=== PATIENT | female | born 1945 | race Caucasian/White ===

== ENCOUNTER 2017-01-04 13:24 | Emergency (ER) | payer MEDICARE ==
[2017-01-04 14:11] LABS: URINE BILIRUBIN NEGATIVE (NEGATIVE); URINE BLOOD NEGATIVE (NEGATIVE); URINE GLUCOSE (UA) NORMAL (NORMAL); URINE KETONE NEGATIVE (NEGATIVE); URINE LEUKOCYTE ESTERASE 2+ (NEGATIVE); URINE NITRATE NEGATIVE (NEGATIVE); URINE PROTEIN NEGATIVE (NEGATIVE)
[2017-01-04 14:16] LABS: BASO # 0.1 10_X3_uL (0.0-0.1); BASO % 1.7 % (0.1-1.2); EOS # 0.2 10_X3_uL (0.0-0.4); EOS % 3.5 % (0.7-5.8); GRAN # 2.1 10_X3_uL (1.6-6.1); GRAN % 34.9 % (34.0-71.1); HEMATOCRIT 35.3 % (34-45); HEMOGLOBIN 11.8 g/dL (11.2-15.7); LYMPH # 2.8 10_X3_uL (1.2-3.7); LYMPH % 46.5 % (19.3-51.7); MEAN CORPUSCULAR HEMOGLOBIN 33.2 pg (27.0-33.0); MEAN CORPUSCULAR HGB CONC 33.4 g/dL (32.0-36.0); MEAN CORPUSCULAR VOLUME 99.4 fL (79-95); MONO # 0.8 10_X3_uL (0.2-0.9); MONO % 13.4 % (4.7-12.5); PLATELET COUNT 239 x10_3/uL (182-369); RED BLOOD COUNT 3.55 x10_6/uL (3.9-5.2); RED CELL DISTRIBUTION WIDTH 12.6 % (11.7-14.4)
[2017-01-04 14:26] LABS: URINE RBC 0-5 /[HPF] (0-2); URINE SQUAMOUS EPITHELIAL CELL 0-10 /[HPF] (NONE SEEN)
[2017-01-04 14:27] LABS: URINE BACTERIA TRACE (NONE SEEN)
[2017-01-04 14:27] LABS: ALKALINE PHOSPHATASE 69 U/L (50-136); ALT/SGPT 139 U/L (3.5-33.9); AMYLASE 77 U/L (15.62-74.58); AST/SGOT 155 U/L (7.04-26.96); BILIRUBIN,TOTAL 0.49 mg/dL (0.0-1.0); BLOOD UREA NITROGEN 8 mg/dL (7-18); CARBON DIOXIDE 27 mmol/L (21-32); CREATININE 0.6 mg/dL (0.6-1.3); GLUCOSE,RANDOM 85 mg/dL (70-99); LIPASE 50 U/L (6.75-60.75); POTASSIUM 4.1 mmol/L (3.5-5.1); SODIUM 138 mmol/L (136-145); TOTAL PROTEIN 7.6 gm/dL (6.4-8.2)
== END 2017-01-04 15:48 | disposition home or self-care (01) ==
LOC: ER 13:24
PROVIDERS: Family Medicine
DX: N39.0 Urinary tract infection, site not specified (principal); R10.9 Unspecified abdominal pain; R05 Cough; I10 Essential (primary) hypertension; Z79.899 Other long term (current) drug therapy
CPT/HCPCS: 36415; 71020; 80053; 81001; 82150; 83690; 85025; 87086; 99070; 99283